=== PATIENT | male | born 1995 | race African-American/Black ===

== ENCOUNTER 2019-02-14 10:07 | Emergency (ER) | payer OTHER ==
[~2019-02-14] VITALS: Ht 182.9 cm; Wt 108.9 kg
[2019-02-14 10:08] VITALS: BP 142/91
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
[2019-02-14] MEDS ORDERED: IBUPROFEN 600 MG TABLET PO ONE ×2 (10:27→10:30)
[2019-02-14] MEDS ORDERED: TDAP [DIPH/PERTUSSIS/TET] 0.5 ML VIAL IM ONE ×2 (10:27→10:30)
--- NOTE | 2019-02-14 10:38 | NUR ---
patient refused all medications MD made aware.
--- NOTE | 2019-02-14 10:39 | NUR ---
giovanni refused and returned to pharmacy and received by Hitesh.
== END 2019-02-14 10:49 ==
LOC: ER 10:09
DX: S00.03XA Contusion of scalp, initial encounter (principal); S00.412A Abrasion of left ear, initial encounter; R51 Headache; R00.0 Tachycardia, unspecified; W22.8XXA Striking against or struck by other objects, initial encounter; Y93.89 Activity, other specified; Y92.89 Other specified places as the place of occurrence of the external cause; Y99.8 Other external cause status
CPT/HCPCS: 70450-TC; 90715